=== PATIENT | male | born 1950 | race Caucasian/White ===

== ENCOUNTER → 2017-02-27 12:49 | Emergency (ER) | payer MEDICARE, BC ==
[~2017-02-27 12:49] MED LIST: Iohexol 350* (CONTRAST) 500 ML MDV IV ONE
[2017-02-27 14:26] LABS: Hematocrit 41 % (42-52); Hemoglobin 13.8 g/dl (14.0-18.0); Mean Corpuscular HGB Conc 34 g/dl (31-36); Mean Corpuscular Hemoglobin 28 pg (27-31); Mean Corpuscular Volume 83 fL (80-94); Mean Platelet Volume 9 um3 (7.4-10.4); Red Blood Count 4.91 10^6/ul (4.0-5.4); Red Cell Distribution Width 13 % (10.5-15); White Blood Count 5.2 10^3/ul (3.5-10.8)
[2017-02-27 14:42] LABS: Albumin 3.6 g/dL (3.2-5.2); BUN/Creatinine Ratio 19.4 (8-20); Calcium 8.4 mg/dL (8.6-10.3); EGFR African American 104.9 (>60); EGFR Non-African American 81.5 (>60); Globulin 2.5 g/dL (2-4); Potassium 3.7 mmol/L (3.5-5.0); Total Bilirubin 0.6 mg/dL (0.2-1.0); Total Protein 6.1 g/dL (6.4-8.9)
--- NOTE | 2017-02-27 15:27 | RAD ---
INDICATION: Chest pain and dizziness. On Coumadin for DVT. Evaluate for pulmonary embolus. COMPARISON: CT chest August 11, 2016 TECHNIQUE: Axial source images were obtained from the thoracic inlet to the hemidiaphragms following administration of 100 mL Omnipaque [address] angiographic technique was utilized. Coronal and sagittal reconstructed images were acquired. CHEST FINDINGS: Neck/thyroid: The visualized neck to include the thyroid appear normal. Chest wall: There are no acute abnormalities of the bony thorax or chest wall. There is no supraclavicular, infraclavicular, or axillary lymphadenopathy. Lungs : There are no pulmonary parenchymal masses or infiltrates. The previously described nodule in the right lung base is considerably smaller. The pulmonary interstitium appears normal. There are no endobronchial lesions. Cardiomediastinal structures: There is no CT evidence of acute pulmonary embolic disease. The heart is normal in size. There is no pericardial effusion. There is no evidence of aortic aneurysm or dissection. There is no axillary lymphadenopathy. There is mild mediastinal lymphadenopathy with left infrahilar lymph nodes measuring up to 1.4 cm in short axis. There are multiple additional mixed on lymph nodes which approach 1 cm. These were not present previously. The esophagus appears normal. Pleura : There are no pleural effusions. Other: Small hiatal hernia. IMPRESSION: 1. No CT evidence of acute pulmonary embolic disease. 2. Mild mediastinal lymphadenopathy represents an indeterminate finding. Suggest follow-up. 3. The previously identified pleural-based nodule in the right lung base appears smaller
[2017-02-27 18:10] VITALS: BP 151/69
--- NOTE | 2017-02-28 17:55 | ED ---
Kg Rdz Auryana, scribed for Sam Vila MD on 02/27/17 at 1417 . Respiratory - HPI Summary HPI Summary: 66 year old male LORIA with AGUILAR and dizziness worse since morning. Patient reports that he has had SOB over the last month but that it has gotten progressively worse. Patient also reports general fatigue/weakness and upper chest pain - lasting a few seconds just before going to bed - started a few days ago. He denies any current pain, nausea, or diaphoresis. AGUILAR is improved with rest. PMHx is significant for hernia, RLE DVT (Sep 2016)- Coumadin with normal INR this week. He is currently scheduled with f/u with Dr. Rivas for enlarged lymph nodes. PCP is Dr. Jama. - History of Current Complaint Chief Complaint: EDDizziness Stated Complaint: LIGHT HEADED AND DIZZY, CHEST PRESSURE Time Seen by Provider: 02/27/17 13:42 Hx Obtained From: Patient Onset/Duration: Gradual Onset Timing: Constant Initial Severity: Mild Current Severity: None Pain Intensity: 0 Character: Dyspnea on Exertion Aggravating Factor(s): Exertion Alleviating Factor(s): Rest Associated Signs and Symptoms: SOB, Chest Pain - upper chest pain just before going to sleep lasting a few seconds, Dizziness - Allergy/Home Medications Allergies/Adverse Reactions: Allergies Allergy/AdvReac Type Severity Reaction Status Date / Time No Known Allergies Allergy Verified 08/11/16 08:21 Home Medications: Home Medications Losartan TAB* [Cozaar TAB*] 100 mg PO DAILY 02/27/17 [History Confirmed 02/27/17 ] Pantoprazole TAB (NF) [Protonix TAB (NF)] 40 mg PO DAILY 02/27/17 [History Confirmed 02/27/17] Warfarin TAB(*) [Coumadin TAB(*)] 7.5 mg PO DAILY 02/27/17 [History Confirmed ] PMH/Surg Hx/FS Hx/Imm Hx Endocrine/Hematology History: Denies: Hx Diabetes Cardiovascular History: Reports: Hx Hypertension Denies: Hx Pacemaker/ICD GI History: Denies: Hx Gall Bladder Disease, Hx Gastrointestinal Bleed History: Denies: Hx Dialysis, Hx Renal Disease Sensory History: Denies: Hx Hearing Aid Psychiatric History: Denies: Hx Panic Disorder - Surgical History Surgery Procedure, Year, and Place: abd hernia; bilat knee arthroscopies; tonsils , esophageal dilation Infectious Disease History: No Infectious Disease History: Reports: Hx Hepatitis - thnks it was "B" Denies: Hx Clostridium Difficile, Hx Human Immunodeficiency Virus (HIV), Hx of Known/Suspected MRSA, Hx Shingles, Hx Tuberculosis, Hx Known/Suspected VRE, Hx Known/Suspected VRSA, History Other Infectious Disease, Traveled Outside the [place] in Last 30 Days - Family History Known Family History: Positive: Cardiac Disease, Diabetes, Other - clotting issues - Social History Alcohol Use: Rare Substance Use Type: Reports: None Smoking Status (MU): Never Smoked Tobacco Review of Systems Positive: Fatigue, Other - dizziness . Negative: Fever Eyes: Negative ENT: Negative Positive: Chest Pain - upper chest pain just before going to sleep lasting a few seconds Positive: Shortness Of Breath - AGUILAR Gastrointestinal: Negative Negative: Nausea Genitourinary: Negative Positive: no symptoms reported Musculoskeletal: Negative Skin: Negative Neurological: Negative Psychological: Normal All Other Systems Reviewed And Are Negative: Yes Physical Exam Triage Information Reviewed: Yes Vital Signs On Initial Exam: Initial Vitals Temp Pulse Resp BP Pulse Ox 98.1 F 72 18 124/68 95 02/27/17 12:51 02/27/17 12:51 02/27/17 12:51 02/27/17 12:51 02/27/17 12:51 Vital Signs Reviewed: Yes Appearance: Positive: Well-Appearing, No Pain Distress, Obese Skin: Positive: Warm, Skin Color Reflects Adequate Perfusion, Dry Head/Face: Positive: Normal Head/Face Inspection Eyes: Positive: Normal ENT: Positive: Normal ENT inspection Neck: Positive: Supple, Nontender Respiratory/Lung Sounds: Positive: Clear to Auscultation, Breath Sounds Present Cardiovascular: Positive: Normal, RRR Abdomen Description: Positive: Nontender, Soft Bowel Sounds: Positive: Present Musculoskeletal: Positive: Normal, Strength/ROM Intact Neurological: Positive: Normal, Sensory/Motor Intact Psychiatric: Positive: Normal, Affect/Mood Appropriate - [place] Coma Scale Coma Scale Total: 15 Diagnostics - Vital Signs Vital Signs Temp Pulse Resp BP Pulse Ox 02/27/17 12:51 98.1 F 72 18 124/68 95 - Laboratory Lab Results: Lab Results 02/27/17 02/27/17 02/27/17 Range/Units 14:16 14:16 14:16 WBC 5.2 (3.5-10.8) 10^3/ul RBC 4.91 (4.0-5.4) 10^6/ul Hgb 13.8 L (14.0-18.0) g/dl Hct 41 L (42-52) % MCV 83 (80-94) fL MCH 28 (27-31) pg MCHC 34 (31-36) g/dl RDW 13 (10.5-15) % Plt Count 149 L (150-450) 10^3/ul MPV 9 (7.4-10.4) um3 Neut % (Auto) 49.4 (38-83) % Lymph % (Auto) 33.5 (25-47) % Cottle % (Auto) 11.8 H (1-9) % Eos % (Auto) 4.7 (0-6) % Baso % (Auto) 0.6 (0-2) % Absolute Neuts (auto) 2.6 (1.5-7.7) 10^3/ul Absolute Lymphs (auto) 1.8 (1.0-4.8) 10^3/ul Absolute Monos (auto) 0.6 (0-0.8) 10^3/ul Absolute Eos (auto) 0.2 (0-0.6) 10^3/ul Absolute Basos (auto) 0 (0-0.2) 10^3/ul Absolute Nucleated RBC 0 10^3/ul Nucleated RBC % 0.1 Sodium 136 (133-145) mmol/L Potassium 3.7 (3.5-5.0) mmol/L Chloride 107 (101-111) mmol/L Carbon Dioxide 23 (22-32) mmol/L Anion Gap 6 (2-11) mmol/L BUN 18 (6-24) mg/dL Creatinine 0.93 (0.67-1.17) mg/dL Est GFR ( Amer) 104.9 (>60) Est GFR (Non-Af Amer) 81.5 (>60) BUN/Creatinine Ratio 19.4 (8-20) Glucose 90 (70-100) mg/dL Lactic Acid 1.3 (0.5-2.0) mmol/L Calcium 8.4 L (8.6-10.3) mg/dL Total Bilirubin 0.60 (0.2-1.0) mg/dL AST 19 (13-39) U/L ALT 20 (7-52) U/L Alkaline Phosphatase 83 (34-104) U/L Troponin I 0.00 (<0.04) ng/mL B-Natriuretic Peptide ( - 100) pg/mL Total Protein 6.1 L (6.4-8.9) g/dL Albumin 3.6 (3.2-5.2) g/dL Globulin 2.5 (2-4) g/dL Albumin/Globulin Ratio 1.4 (1-3) 02/27/17 02/27/17 Range/Units 14:16 17:52 WBC (3.5-10.8) 10^3/ul RBC (4.0-5.4) 10^6/ul Hgb (14.0-18.0) g/dl Hct (42-52) % MCV (80-94) fL MCH (27-31) pg MCHC (31-36) g/dl RDW (10.5-15) % Plt Count (150-450) 10^3/ul MPV (7.4-10.4) um3 Neut % (Auto) (38-83) % Lymph % (Auto) (25-47) % Cottle % (Auto) (1-9) % Eos % (Auto) (0-6) % Baso % (Auto) (0-2) % Absolute Neuts (auto) (1.5-7.7) 10^3/ul Absolute Lymphs (auto) (1.0-4.8) 10^3/ul Absolute Monos (auto) (0-0.8) 10^3/ul Absolute Eos (auto) (0-0.6) 10^3/ul Absolute Basos (auto) (0-0.2) 10^3/ul Absolute Nucleated RBC 10^3/ul Nucleated RBC % Sodium (133-145) mmol/L Potassium (3.5-5.0) mmol/L Chloride (101-111) mmol/L Carbon Dioxide (22-32) mmol/L Anion Gap (2-11) mmol/L BUN (6-24) mg/dL Creatinine (0.67-1.17) mg/dL Est GFR ( Amer) (>60) Est GFR (Non-Af Amer) (>60) BUN/Creatinine Ratio (8-20) Glucose (70-100) mg/dL Lactic Acid (0.5-2.0) mmol/L Calcium (8.6-10.3) mg/dL Total Bilirubin (0.2-1.0) mg/dL AST (13-39) U/L ALT (7-52) U/L Alkaline Phosphatase (34-104) U/L Troponin I 0.00 (<0.04) ng/mL B-Natriuretic Peptide 44 ( - 100) pg/mL Total Protein (6.4-8.9) g/dL Albumin (3.2-5.2) g/dL Globulin (2-4) g/dL Albumin/Globulin Ratio (1-3) Result Diagrams: 02/27/17 14:16 02/27/17 14:16 Lab Statement: Any lab studies that have been ordered have been reviewed, and results considered in the medical decision making process. - CT CTA CHEST CT Interpretation: Positive (See Comments) - IMPRESSION: 1. No CT evidence of acute pulmonary embolic disease. 2. Mild mediastinal lymphadenopathy represents an indeterminate finding. Suggest follow-up. 3. The previously identified pleural-based nodule in the right lung base appears smaller CT Interpretation Completed By: Radiologist Disposition - Course Course Of Treatment: Mr. Preston has been having increased SOB symptoms and has a history of DVT. CTA ruled out a PE but showed diffuse lymphadenopathy and I spoke with Dr. Rivas about F/U. - Diagnoses Provider Diagnoses: Dyspnea - Physician Notifications Discussed Care Of Patient With: Arabella Rivas Time Discussed With Above Provider: 16:38 - recommends follow up with PCP Discharge - Discharge Plan Condition: Stable Disposition: HOME Patient Education Materials: Dyspnea (ED) Referrals: Arabella Rivas MD [Medical Doctor] - (please keep scheduled appointment ) Deborah Jama MD [Primary Care Provider] - 3 Days (please follow up with your PCP.) The documentation as recorded by the Kg mukherjee Auryana accurately reflects the service I personally performed and the decisions made by me, Sam Vila MD.
== END | disposition home or self-care (01) ==
LOC: ED 12:49
DX: R06.00 Dyspnea, unspecified (principal); R06.02 Shortness of breath; R07.9 Chest pain, unspecified; R42 Dizziness and giddiness
CPT/HCPCS: 36415; 71275; 80053; 83605; 83880; 84484; 85025; 93005; 99282; Q9967

== ENCOUNTER 2017-03-18 11:33 | Day surgery (SDC) | payer MEDICARE, BC ==
[~2017-03-18 11:33] MED LIST changes: +Buffered Lidocaine 0.9% SYRIN* 5 ML/SYR SYRINGE INTRADERM ONE; -Iohexol 350* (CONTRAST) 500 ML MDV IV ONE
[2017-03-18] MEDS ORDERED: Midazolam* 1 MG/ML 2 ML VIAL (2 MG) ONE (12:58)
[2017-03-18] MEDS ORDERED: Lidocaine 2% PF* 10 ML AMP ONE (13:32)
[2017-03-18] MEDS ORDERED: Lidocaine 2% JELLY* 6 ML JELLY TOPICAL ONE ×2 (13:32→13:34)
[2017-03-18] MEDS ORDERED: Lidocaine 1% INJ* 10 MG/ML 30 ML SDV ONE (13:32)
[2017-03-18] MEDS ORDERED: Rocuronium* 10 MG/ML VIAL ONE (13:39)
[2017-03-18] MEDS ORDERED: Dexamethasone IV* 4 MG/ML 1 ML (4 MG) ONE (13:39)
[2017-03-18] MEDS ORDERED: Propofol* 10 MG/ML 20 ML BTL IV PUSH ONE (13:39)
[2017-03-18] MEDS ORDERED: fentaNYL* 50 MCG/ML 2 ML VIAL (100 MCG VIAL) ONE (13:39)
[2017-03-18] MEDS ORDERED: Lidocaine 2% PF * 5 ML VIAL ONE (13:39)
[2017-03-18] MEDS ORDERED: Succinylcholine* 20 MG/ML 10 ML VIAL ONE (13:39)
[2017-03-18] MEDS ORDERED: DiMENhydriNATE IV* 50 MG/ML VIAL IV PUSH PRN (14:22)
[2017-03-18] MEDS ORDERED: Levalbuterol 0.63MG/3ML NEB INH PRN (14:22)
[2017-03-18] MEDS ORDERED: Ondansetron INJ* 2 MG/ML VIAL IV PRN (14:22)
[2017-03-18] MEDS ORDERED: fentaNYL* 50 MCG/ML 2 ML VIAL (100 MCG VIAL) IV PRN (14:22)
[2017-03-18] MEDS ORDERED: PROCHLORPERAZINE INJ 5 MG/ML 2 ML VIAL IV PRN (14:22)
[2017-03-18] MEDS ORDERED: Acetaminophen TAB* 325 MG PO PRN (14:22)
[2017-03-18] MEDS ORDERED: Phenylephrine IV* 40 MCG/ML 10 ML SYRINGE ONE (14:31)
[2017-03-18 16:05] VITALS: BP 141/87
--- NOTE | 2017-03-19 02:45 | PRO ---
BRONCHOSCOPY REPORT: DATE OF PROCEDURE: 03/18/17 [facility] PROCEDURE PERFORMED BY: Arabella Rivas MD ANESTHESIOLOGIST: Dr. Hoskins. ANESTHESIA: General anesthesia. PRE-PROCEDURAL DIAGNOSIS: Mediastinal adenopathy. PROCEDURE PERFORMED: Endobronchial ultrasound-guided fine-needle aspiration of mediastinal nodes under general anesthesia. PROCEDURE IN DETAIL: Informed consent was obtained from the patient prior to the procedure after all the risks and benefits associated with the procedure were thoroughly explained. The patient was intubated with size 8.0 endotracheal tube. Appropriate time-out was agreed on by operating room staff prior to the procedure. The patient was lying supine on operating room table. Flexible Olympus bronchoscope was inserted through ET tube for airway inspection. ET tube positioning was confirmed to be 2 cm above the level of ximena. Bronchoscope was then advanced into the right bronchial tree, which was inspected. Minimal amounts of thin secretions were noted and were suctioned out. Bronchoscope was then advanced into the left bronchial tree, minimal secretions noted and were suctioned out. No endobronchial lesions were noted. Bronchoscope was then withdrawn and Olympus EBUS bronchoscope was inserted. Station 7 lymph node was accessed with 3 passes. Rapid on-site evaluation revealed lymphatic tissue, no malignant cells were noted. R4 lymph node was then accessed with 3 passes. Rapid on-site evaluation revealed lymphatic tissue , no malignant cells were noted. Station L10 was accessed with 3 passes. Lymphatic tissue was seen. No malignant cells were noted, specimen was placed in CytoLyt. Patient tolerated the procedure well. The patient was extubated and seen in Recovery in optimal condition. [id number]/CPS #: [id number] MTDD
== END 2017-03-18 16:36 | disposition home or self-care (01) ==
LOC: OR 11:33
PROVIDERS: ATTEND Internal Medicine
DX: R59.0 Localized enlarged lymph nodes (principal); I10 Essential (primary) hypertension; K21.9 Gastro-esophageal reflux disease without esophagitis; I82.5Y1 Chronic embolism and thrombosis of unspecified deep veins of right proximal lower extremity; Z79.01 Long term (current) use of anticoagulants; Z88.8 Allergy status to other drugs, medicaments and biological substances
CPT/HCPCS: 88172; 88173; 88184; 88185; 88188; 88305; J0330; J1100; J2001; J2250; J2704; J3010

== ENCOUNTER 2017-04-29 14:04 | Emergency (ER) | payer MEDICARE, BC ==
[2017-04-29 14:26] VITALS: BP 144/83
--- NOTE | 2017-04-29 15:18 | UC ---
Skin Complaint HPI - HPI Summary HPI Summary: 66 YO MALE WITH A SMALL TENDER AREA OF REDNESS AND SWELLING LEFT MEDIAL CALF JUST STOPPED COUMADIN AFTER 9 MOS FOR RIGHT LEG DVT NO CP OR SOB - History of Current Complaint Chief Complaint: UCLowerExtremity Time Seen by Provider: 04/29/17 15:12 Stated Complaint: LEFT LEG PAIN Hx Obtained From: Patient Onset/Duration: Gradual Onset, Lasting Days Onset Severity: Mild Current Severity: Mild Pain Intensity: 2 Pain Scale Used: 0-10 Numeric Location: Other - LEFT LEG Character: Pain, Redness Aggravating: Touch Alleviating: Nothing Associated Signs & Symptoms: Positive: Tenderness - Allergy/Home Medications Allergies/Adverse Reactions: Allergies Allergy/AdvReac Type Severity Reaction Status Date / Time No Known Allergies Allergy Verified 04/29/17 14:18 Review of Systems Constitutional: Negative Skin: Negative Eyes: Negative ENT: Negative Respiratory: Negative Cardiovascular: Negative Gastrointestinal: Negative Genitourinary: Negative Motor: Negative Neurovascular: Negative Musculoskeletal: Negative Neurological: Negative Psychological: Negative All Other Systems Reviewed And Are Negative: Yes PMH/Surg Hx/FS Hx/Imm Hx Previously Healthy: Yes Cardiovascular History: Hypertension, Deep Vein Thrombosis Other History Of: Hepatitis B - Surgical History Surgical History: Yes Surgery Procedure, Year, and Place: TONSILLECTOMY- [address] [place] [address]. [place] [facility] [place]- [place] [facility] [place] BILATERAL KNEE SURGERIES X 4 (2 LEFT, 2 RIGHT)- 1998, 2004, 2008, [place] [facility] [place] - Family History Known Family History: Positive: Cardiac Disease, Hypertension, Diabetes, Other - clotting issues - Social History Alcohol Use: None Substance Use Type: None Smoking Status (MU): Never Smoked Tobacco Have You Smoked in the Last Year: No - Immunization History Most Recent Tetanus Shot: 08/09/2010 Physical Exam Triage Information Reviewed: Yes Appearance: Well-Appearing, No Pain Distress, Well-Nourished Vital Signs: Initial Vital Signs Temp 98.1 F 04/29/17 14:20 Pulse 84 04/29/17 14:20 Resp 16 04/29/17 14:20 BP 144/83 04/29/17 14:20 Pulse Ox 98 04/29/17 14:20 Vital Signs Reviewed: Yes Eyes: Positive: Conjunctiva Clear ENT: Positive: Hearing grossly normal. Negative: Nasal congestion, Nasal drainage, Trismus, Muffled/hoarse voice Neck: Positive: Supple, Nontender, No Lymphadenopathy Respiratory: Positive: Lungs clear, Normal breath sounds, No respiratory distress, No accessory muscle use Cardiovascular: Positive: RRR, No Murmur Musculoskeletal: Positive: ROM Intact, No Edema Neurological: Positive: Alert Psychological Exam: Normal Skin Exam: Normal Course/Dx - Course Course Of Treatment: PT IS AWARE OF HIS INCREASED RISK OF DVT. I TOLD HIM THAT IF HE IS UNABLE TO GET CHECKED WITH HIS MD THAT HE SHOULD GET RECHECKED IN 1-2 DAYS HERE OR ER - Diagnoses Provider Diagnoses: SUPERFICIAL THROMBOPHEBITIS LEFT LEG Discharge - Discharge Plan Condition: Stable Disposition: HOME Prescriptions: Naproxen Sodium [Naproxen Sodium 500 MG TAB] 500 mg PO BID PRN #30 tab PRN Reason: Pain Patient Education Materials: Superficial Thrombophlebitis (ED) Referrals: Deborah Jama MD [Primary Care Provider] - As Soon As Possible (you should be rechecked in 1-2 days) Additional Instructions: heat naproxen YOU ARE AT HIGH RISK FOR DVT. AT THIS TIME THINGS ARE VERY SUPERFICIAL BUT THIS NEEDS CLOSE FOLLOW UP IF SYMPTOMS WORSEN YOU WILL NEED A DOPPLER STUDY Images Front/Back of Body, Lg ([place]): 1 - 3X4 XM OF REDNESS/WARMTH/TENDER VARICOSE VEIN. CALF NON TENDER/-HOMANS
== END 2017-04-29 15:15 | disposition home or self-care (01) ==
LOC: UCCORT 14:04
DX: I80.02 Phlebitis and thrombophlebitis of superficial vessels of left lower extremity (principal); I10 Essential (primary) hypertension; Z86.718 Personal history of other venous thrombosis and embolism
CPT/HCPCS: 99212; G0463

== ENCOUNTER 2018-04-08 06:59 | Inpatient (IN) | payer MEDICARE, BC ==
--- NOTE | 2018-03-24 19:40 | HP ---
CC: Dr. Lawrence; [facility] * PREOPERATIVE HISTORY AND PHYSICAL: DATE OF ADMISSION/SURGERY: 04/08/18 This patient is scheduled for AA admission by Dr. Oshea on , 04/08/18. DATE OF PREOPERATIVE HISTORY AND PHYSICIAN EXAMINATION: 03/24/18. ATTENDING SURGEON: Dr. Bakari Oshea * (dictated by Anuradha Jacobs NP). CHIEF COMPLAINT: Lung nodules. HISTORY OF PRESENT ILLNESS: The patient is a 67-year-old male referred to Dr. Oshea from Dr. Lawrence with a history of multiple lung nodules. The patient had a deep vein thrombosis in the right lower extremity in September 2016 and underwent a workup and was managed at that time on anticoagulation. He had a CAT scan of the chest approximately one year ago that showed a questionable lung nodule and prominent mediastinal lymph nodes. EBUS at that time was negative. A followup CT scan done 6 months ago showed tiny lung nodules about 3 or 4 mm in size and then a repeat CT of the chest done in February 2018 showed more than 10 such nodules spread throughout both lungs. Dr. Oshea ordered a CAT scan of the chest, abdomen, and pelvis, which was done 03/17/18, which revealed scattered small nodules in both lung arthur, no change since the previous scan in February 2018 and no other masses or fluid collections were identified. Dr. Oshea has discussed the above findings with the patient and has recommended left thoracoscopy and lung biopsy and described the nature of the surgical procedure and the rationale for the procedure, the relevant risks and benefits of the procedure, and today, I reviewed the typical hospitalization , the use of a chest tube and the expected postoperative care and recovery. The patient has had a chance to ask questions and stated that he under-stands the information and is satisfied with the answers given to his questions. He will sign surgical consent on the day of surgery. PAST MEDICAL HISTORY: Significant for deep vein thrombosis, right lower extremity, diagnosed September 2016; small ventral hernia; GERD; hypertension. PAST SURGICAL HISTORY: Laparoscopic inguinal hernia repair around [address] Oshea, multiple knee arthroscopies, and tonsillectomy. MEDICATIONS: 1. Pantoprazole 40 mg p.o. daily. 2. Losartan 50 mg p.o. daily. 3. Atorvastatin 10 mg p.o. daily. 4. Aspirin enteric-coated 325 mg p.o. daily and the patient was instructed to continue taking the daily aspirin in the perioperative period. 5. He also takes AREDS supplement. ALLERGIES: SUDAFED caused hallucinations. FAMILY HISTORY: Father with a history of myocardial infarction and CVA. Mother with a history of motor vehicle accident and blood clots. No known anesthesia complications in the family. 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 He has never been a smoker and rarely drinks alcohol and denies the use of other substances. REVIEW OF SYSTEMS: Constitutional: No fevers, chills, night sweats, excessive fatigue, or weight loss. Endocrine: No diabetes or thyroid disease. Hematologic: No easy bruising or bleeding. No previous blood transfusions. Respiratory: No dyspnea on exertion. No chronic cough or hemoptysis. Cardiovascular: No chest pain or palpitations. Gastrointestinal: No nausea, vomiting, diarrhea, GI bleeding, or constipation. No change in bowel habits. He does have GERD, which is controlled with medication. Genitourinary: No dysuria. Musculoskeletal: No complaints of back or joint pain. Neurologic: No headache or blurred vision. No dizziness. No areas of focal weakness. General: No previous anesthesia complications; he does have a history of deep vein thrombosis in the right lower extremity and wears a support stocking. No history of pulmonary embolism. No previous blood transfusions. PHYSICAL EXAMINATION GENERAL SURVEY: The patient is a 67-year-old male, well developed, well nourished, in no acute distress. VITAL SIGNS: Height 71.5 inches, weight 235 pounds, body mass index 32.3. Blood pressure 132/72, pulse 72 and regular, respiratory rate 18, temperature 96.7 tympanic. HEENT: Benign. NECK: Supple. No cervical lymphadenopathy. No supraclavicular lymphadenopathy. LUNGS: Breath sounds bilaterally clear and equal. HEART: Regular rate and rhythm. No murmurs or rubs appreciated. ABDOMEN: Active bowel sounds. Soft and nondistended. Small ventral hernia, left mid quadrant, nontender, reducible when the patient is supine. No umbilical hernia. No other palpable masses or organomegaly. BACK: No CVA tenderness. GENITALIA: Exam deferred. RECTAL: Exam deferred. EXTREMITIES: Warm without edema or skin ulceration. He does have varicose veins. NEUROLOGIC: Alert and oriented x3. Steady gait. SKIN: Warm, dry, intact. IMPRESSION: Bilateral lung nodules. PLAN: AA admission to Dr. Oshea's service on , 04/08/18, for left thoracoscopy and lung biopsy. ALEKSEY JACOBS, SR. DIRECTOR PRODUCT MANAGEMENT [id number]/[facility] #: [id number] [place]
[~2018-04-08 06:59] MED LIST changes: +Famotidine IV* 10 MG/ML 2 ML (20 mg) IV ONE
--- OUTSIDE RECORDS SUMMARY | 2018-04-08 07:03 | XMS REPORT ---
:1950 External Reference #:[id number] Author Organization [employer] Address [address] [place] [address] Phone [phone] Care Team Providers Name Role Phone Suhas Krueger D.O. Primary Care Physician Unavailable Payers Type Date Identification Numbers Payment Provider Subscriber Medicare Primary Effective: Policy Number: Medicare Moraima Wong 2016 [id number] PayID: [id number] [address] [place] [address] Medigap Part B Policy Number: [id number] [facility] Moraima Wong PayID: [id number] [address] [place] [address] Commercial Expires: 2014 Group Name: [facility] Moraima Wong Elect Pensioner (Oon) PayID: [id number] [address] [place] [address] Problems Date Description Provider Status Onset: 03/03/2017 Elisa Rivas MD Active Onset: 05/16/2015 Osteoarthritis of knee Sarah Franco M.D. Active Onset: 04/27/2015 Sprain of knee and leg Sarah Franco M.D. Active Onset: 04/27/2015 Current tear of medial cartilage AND/OR Sarah Franco M.D. Active meniscus of knee Onset: 04/13/2015 Localized, primary osteoarthritis Sarah Franco M.D. Active Family History Date Family Member(s) Problem(s) Comments General Prostate Cancer General Arthritis General Stroke Father Cerebrovascular Accident (CVA) Father [place] Mother Blood clots secondary to MVA and resulting injuries Social History Type Date Description Comments Marital Status Lives With Occupation Retired Cigarette Use Never Smoked Cigarettes ETOH Use Rarely consumes alcohol wine Smoking Patient has never smoked Recreational Drug Use Denies Drug Use Daily Caffeine Consumes on average 2 cups of regular coffee per day Exercise Type/Frequency Exercises regularly 2-3 times per week Allergies, Adverse Reactions, Alerts Date Description Reaction Status Severity Comments 03/03/2017 Sudafed active hallucinations 08/28/2014 NKDA inactive Medications Medication Date Status Form Strength Qnty SIG Indications Ordering Provider Pantoprazole / Active Tablets 40mg 1 po qd Franz, Sodium 0000 DR Sami MD Losartan / Active Tablets 50mg 1 po qd Jaguar Potassium 0000 MD Ismael Aspirin Ec / Active Tablets 325mg take 1 tab by Unknown 0000 DR mouth every day Atorvastatin / Active Tablets 10mg 1 by mouth Unknown Calcium 0000 every day Areds / Active Unknown 0000 Voltaren 04/27/ Hx Gel 1% 1tube apply to 836.0 Sarah 2014 right knee Salvador, three times a M.D. day as needed Percocet 04/16/ Hx Tablets 5-325mg 50tab 1-2 by mouth Sarah 2014 s every 4 to 6 Salvador, hours as M.D. needed pain Pantoprazole 08/28/ Hx Tablets 30tab 1 by mouth Evi Sodium Gela - DR cooper every day Markell 04/12/ M.D. 2014 Losartan / Hx Tablets 30tab 1 by mouth Unknown Potassium 0000 - s every day 2013 Multi Vitamin /00/ Hx Tablets 1 po qd Unknown Daily 0000 Hydrocodone-Ac 00/ Hx Tablets 5-325mg Unknown etaminophen 0000 - 2014 Glucosamine & /00/ Hx Packet [id number] 1 po qd Unknown Chondroiti 0000 -800mg-mg N/Vitamin D -Unit Maximum Strength Cephalexin 00/ Hx Capsules 500mg Every 6 Unknown 0000 hours.. Warfarin 00/00/ Hx Tablets 7.5mg as directed Unknown Sodium 0000 - (on hold) 2017 L-Arginine / Hx 2 daily, not Unknown 0000 - consistently 2017 Naproxen / Hx Tablets 250mg 1 tablet by Unknown 0000 - mouth twice a 10/07/ day as needed 2018 pain, with foods Medications Administered in Office Medication Date Status Form Strength Qnty SIG Indications Ordering Provider Synvisc Or Administered Injection Sarah Synvisc-One Chris Franco M.D. Injection 1 MG Synvisc Or Administered Injection Siobhan Synvisc-One 015 Liptak, Injection 1 MG RPA-C Synvisc Or Administered Injection Sarah Synvisc-One Chris Franco M.D. Injection 1 MG Depomedrol Administered Injection Sarah 80MG Chris Franco M.D. Immunizations CPT Code Status Date Vaccine Lot # [id number] Given 08/18/2016 Pneumonia Vaccine 40636 Given 08/18/2016 Influenza Virus 3Yrs & Over Vital Signs Date Vital Result Comment 03/24/2018 Height 71.5 inches 5'11.50" Weight 235.00 lb Heart Rate 72 /min BP Systolic 132 mmHg BP Diastolic 72 mmHg Respiratory Rate 18 /min Body Temperature 96.7 F BMI (Body Mass Index) 32.3 kg/m2 03/16/2018 Height 71.5 inches 5'11.50" Weight 235.00 lb Heart Rate 74 /min BP Systolic 130 mmHg BP Diastolic 82 mmHg Respiratory Rate 18 /min Body Temperature 97.9 F BMI (Body Mass Index) 32.3 kg/m2 10/08/2017 Height 71.5 inches 5'11.50" Weight 238.00 lb Heart Rate 88 /min BP Systolic Sitting 112 mmHg BP Diastolic Sitting 76 mmHg Respiratory Rate 14 /min O2 % BldC Oximetry 96 % BMI (Body Mass Index) 32.7 kg/m2 05/01/2017 Height 71.5 inches 5'11.50" Weight 233.00 lb Heart Rate 90 /min BP Systolic 130 mmHg BP Diastolic 74 mmHg Respiratory Rate 18 /min Body Temperature 98.1 F BMI (Body Mass Index) 32.0 kg/m2 03/26/2017 Height 71.5 inches 5'11.50" Weight 240.00 lb Heart Rate 76 /min BP Systolic Sitting 128 mmHg BP Diastolic Sitting 88 mmHg Respiratory Rate 14 /min O2 % BldC Oximetry 98 % BMI (Body Mass Index) 33.0 kg/m2 03/03/2017 Height 71.5 inches 5'11.50" Weight 242.00 lb Heart Rate 90 /min BP Systolic Sitting 114 mmHg BP Diastolic Sitting 76 mmHg Respiratory Rate 24 /min O2 % BldC Oximetry 97 % room air BMI (Body Mass Index) 33.3 kg/m2 Neck Circumference in inches 17.5 08/29/2016 Height 71.5 inches 5'11.50" Weight 235.00 lb Heart Rate 76 /min BP Systolic 130 mmHg BP Diastolic 70 mmHg Respiratory Rate 16 /min Body Temperature 97.2 F BMI (Body Mass Index) 32.3 kg/m2 08/08/2016 Heart Rate 80 /min BP Systolic 124 mmHg BP Diastolic 74 mmHg Respiratory Rate 16 /min Body Temperature 97.4 F 08/05/2016 Height 73.5 inches 6'1.50" Weight 235.00 lb Heart Rate 80 /min BP Systolic Sitting 140 mmHg BP Diastolic Sitting 82 mmHg Respiratory Rate 18 /min Body Temperature 96.8 F BMI (Body Mass Index) 30.6 kg/m2 05/30/2015 Height 71 inches 5'11" Weight 230.00 lb Pain Level 1 BMI (Body Mass Index) 32.1 kg/m2 05/23/2015 Height 71 inches 5'11" Weight 230.00 lb Pain Level 0 BMI (Body Mass Index) 32.1 kg/m2 05/16/2015 Height 71 inches 5'11" Weight 230.00 lb Pain Level 2 BMI (Body Mass Index) 32.1 kg/m2 04/27/2015 Height 71 inches 5'11" Heart Rate 78 /min BP Systolic Sitting 140 mmHg BP Diastolic Sitting 66 mmHg 04/13/2015 Height 71 inches 5'11" Weight 230.00 lb Heart Rate 84 /min BP Systolic Sitting 124 mmHg BP Diastolic Sitting 78 mmHg BMI (Body Mass Index) 32.1 kg/m2 08/28/2014 Height 72 inches 6'0" Weight 240.00 lb Heart Rate 80 /min BP Systolic Sitting 128 mmHg BP Diastolic Sitting 82 mmHg BMI (Body Mass Index) 32.5 kg/m2 Results Test Date Test Result H/L Range Note Laboratory test 03/16/2018 Blood Urea Nitrogen 17 mg/dL 6-24 finding BUN Creatinine 03/16/2018 Creatinine 0.99 mg/dL 0.67-1.17 Egfr Non- 75.6 >60 Egfr 91.5 >60 1 Laboratory test finding 03/18/2017 Cytology Non-Organisation And Methods Analyst SEE RESULT BELOW 2 Leukemia/Lymphoma Flow 03/18/2017 Path Interpretation 2-8 TNP Marker Path Interpret > 16 Marker TNP Path Interpret 9-15 Marker (SEE NOTE) 3 Inr/Protime 03/03/2017 Inr 2.52 High 0.89-1.11 Laboratory test finding 08/05/2016 Blood Urea Nitrogen 20 mg/dL 6-24 BUN Creatinine 08/05/2016 Creatinine 1.03 mg/dL 0.67-1.17 Egfr Non- 72.5 >60 Egfr 93.2 >60 4 1 Because ethnic data is not always readily available, this report includes an eGFR for both -Americans and non- Americans. The National Kidney Disease Education Program (NKDEP) does not endorse the use of the MDRD equation for patients that are not between the ages of 18 and 70, are , have extremes of body size, muscle mass, or nutritional status, or are non- or non-. According to the National Kidney Foundation, irrespective of diagnosis, the stage of the disease is based on the level of kidney function: Stage Description GFR(mL/min/1.73 m(2)) 1 Kidney damage with normal or decreased GFR 90 2 Kidney damage with mild decrease in GFR 60-89 3 Moderate decrease in GFR 30-59 4 Severe decrease in GFR 15-29 5 Kidney failure <15 (or dialysis) 2 SEE RESULT BELOW Name: MORAIMA WONG : [address]: Arabella Rivas MD Acct: [id number] Unit: [id number] AGE: 66 Location: OR Re03/18/17 SEX: M Status: [place] [facility] [place] SPEC: [id number] FOREIGN: 03/18/17-1420 [facility] [place] DR: Arabella Rivas MD REQ: [id number] RECD: 03/18/17 STATUS: SOUT _ ORDERED: FNA-IMG GUID BX/3, LEVEL 4/3, CYTO ADEQ-1ST P/3 Flow cytometry has been performed at [facility], [place], [place]. The testing reveals: FINAL DIAGNOSIS: Specimen Source: Lymph node, R-4/L-10 ([id number]) Flow cytometry immunophenotypic analysis: No evidence of an immunophenotypically abnormal cell population. Interpretative data: Lymphocytes: 93% of gated events B-cells: 15% of lymphs; kappa:lambda within normal limits T-cells/NK cells: No aberrant population detected. Markers tested: CD3, CD5, CD7, CD10, CD19, CD20, CD23, CD45, kappa surface light chains, lambda surface light chains, 7-AAD. Quality Assessment: Acceptable Viability: Acceptable Viable lymphocytes (7-AAD): 99% Specimen received within validated guidelines. A Corea-Giemsa stained slide prepared from the flow cytometry specimen was examined for quality purposes. Electronically signed by: Radha Engle MD 03/20/17 2292 Technical component performed by: [place] [address] [employer] Practitioner: Twin Fletcher II, MD, PhD. CONTINUED ON NEXT PAGE * ML=Testing performed at Main Lab DEPARTMENT OF PATHOLOGY, [address] [place] [address] Erwin Duarte M.D. Director SARAH # [id number] RUN DATE: 03/23/17 [facility] LAB LIVE PAGE 2 Patient: MORAIMA WONG [id number] (Continued) ADDENDUM (Continued) Addendum Signed (signature on file) Erwin Duarte MD 1433 FINAL DIAGNOSIS 1) Lymph node, Station 7, Endobronchial ultrasound guided fine needle aspiration: --Benign -ciliated bronchial cells and lymphoid tissue. --No evidence of malignancy identified. 2) Lymph node, R4, Endobronchial ultrasound guided fine needle aspiration: --Benign -ciliated bronchial cells and lymphoid tissue. --No evidence of malignancy identified. 3) Lymph node, L10, Endobronchial ultrasound guided fine needle aspiration: --Benign -ciliated bronchial cells and lymphoid tissue. --No evidence of malignancy identified. COMMENT: A cell block was prepared in the evaluation of this specimen. Smears and cell block reveal similar findings. No granulomata are seen. Flow cytometry is negative for an immunophenotypically abnormal cell population. #1. LYMPH NODE - US GUIDED STATION 7 ENDOBRONCHIAL FINE NEEDLE ASPIRATION, #2. LYMPH NODE - US GUIDED R-4 ENDOBRONCHIAL FINE NEEDLE ASPIRATION, #3. LYMPH NODE - US GUIDED L-10 ENDOBRONCHIAL FINE NEEDLE ASPIRATION CLINICAL HISTORY #1) STATION 7 lymph node. #2) R-4 lymph node. #3) L-10 lymph node. CONTINUED ON NEXT PAGE * ML=Testing performed at Main Lab DEPARTMENT OF PATHOLOGY, [address] [place] [address] Erwin Duarte M.D. Director SARAH # [id number] RUN DATE: 03/23/17 [facility] LAB LIVE PAGE 3 Patient: MORAIMA WONG [id number] (Continued) IMMEDIATE INTERPRETATION (Continued) IMMEDIATE INTERPRETATION 1) Pass 1-3 adequate 2) Pass 1-3 adequate 3) Pass 1 2-adequate GROSS DESCRIPTION #1) US guided endobronchial fine needle aspiration x 3 pass(es) with 8 alcohol fixed slides and needle rinse in formalin for cell block. #2) US guided endobronchial fine needle aspiration x 3 pass(es) with 2 alcohol fixed slides and needle rinse in formalin for cell block. #3) US guided endobronchial fine needle aspiration x 2 pass(es) with 2 alcohol fixed slides and needle rinse in formalin for cell block. Specimens #2 and #3 combined for Specimen sent to [facility] for Flow cytometry [place], [place] on 03/18/17 by [id number] at 1531. Signed (signature on file) Radha Engle MD 1616 END OF REPORT * ML=Testing performed at Main Lab DEPARTMENT OF PATHOLOGY, [address] [place] [address] Erwin Duarte M.D. Director [facility] # [id number] 3 FINAL DIAGNOSIS: Specimen Source: Lymph node, R-4/L-10 ([id number]) Flow cytometry immunophenotypic analysis: No evidence of an immunophenotypically abnormal cell population. Interpretative data: Lymphocytes: 93% of gated events B-cells: 15% of lymphs; kappa:lambda within normal limits T-cells/NK cells: No aberrant population detected. Markers tested: CD3, CD5, CD7, CD10, CD19, CD20, CD23, CD45, kappa surface light chains, lambda surface light chains, 7-AAD. Quality Assessment: Acceptable Viability: Acceptable Viable lymphocytes (7-AAD): 99% Specimen received within validated guidelines. A Corea-Giemsa stained slide prepared from the flow cytometry specimen was examined for quality purposes. Electronically signed by: Radha Engle MD 03/20/17 1614 Technical component performed by: [place] [address] [employer] Practitioner: Twin Fletcher II, MD, PhD. 4 Because ethnic data is not always readily available, this report includes an eGFR for both -Americans and non- Americans. The National Kidney Disease Education Program (NKDEP) does not endorse the use of the MDRD equation for patients that are not between the ages of 18 and 70, are , have extremes of body size, muscle mass, or nutritional status, or are non- or non-. According to the National Kidney Foundation, irrespective of diagnosis, the stage of the disease is based on the level of kidney function: Stage Description GFR(mL/min/1.73 m(2)) 1 Kidney damage with normal or decreased GFR 90 2 Kidney damage with mild decrease in GFR 60-89 3 Moderate decrease in GFR 30-59 4 Severe decrease in GFR 15-29 5 Kidney failure <15 (or dialysis) Procedures Date CPT Code Description Status 03/18/2017 64854 Endobronchial Ultrasound=>3 Completed 05/30/2015 Inject/Drain Joint/Bursa Major W/O US Completed 05/23/2015 Inject/Drain Joint/Bursa Major W/O US Completed 05/16/2015 Inject/Drain Joint/Bursa Major W/O US Completed 04/13/2015 91842 Xray Knee 3 Views Completed 04/13/2015 Inject/Drain Joint/Bursa Major W/O US Completed 08/28/2014 51825 Rad Exam; Fingers Completed Encounters Type Date Location Provider CPT E/M Dx Office Visit 03/16/2018 [facility], [address] J98.4 9:45a [facility] Office Visit 10/08/2017 [facility] [address] J98.4 9:15a [facility] Office Visit 05/01/2017 [facility], [address] K43.2 2:00p [facility] Office Visit 03/26/2017 [facility] [address] R59.0 7:30a [facility] Office Visit 03/03/2017 [facility] [address] R59.0 12:00p [facility] I82.5Y9 Z79.01 Office Visit 08/29/2016 2:00p [place] [address] K43.2 Of [facility] Office Visit 08/08/2016 3:30p [place] [address] K43.2 Of [facility] J98.4 Office Visit 08/05/2016 10:00a [place] [address] R22.2 Of [facility] Office Visit 04/27/2015 1:15p [facility] Sarah Franco M.D. 19806 836.0 Of [facility] AT [place] [address].06 715.16 844.9 715.96 Office Visit 04/13/2015 2:00p [facility] Of Sarah Franco M.D. 60075 715.16 [facility] AT [place] 719.06 719.46 844.9 715.96 727.09 Office Visit 08/28/2014 8:45a [facility] Evi Guillaume 04187 924.11 Of [facility] VIKTORIA [place] Raissa 715.34 Plan of Care Future Appointment(s):04/08/2018 9:00 am - JA Gibbs at [facility]04/08/2018 9:00 am - Bakari Oshea M.D. at [facility]04/07/2018 9:15 am - Arabella Rivas MD at [facility]03/24/2018 - Anuradha Arriaza, NPJ98.4 Other disorders of lungFollow up:postop after discharge from [facility].818 Encounter for other preprocedural examination
--- OUTSIDE RECORDS SUMMARY | 2018-04-08 07:03 | XMS REPORT ---
:1950 External Reference #:[id number] Author Organization [employer] Address [address] [address] Phone [phone] Care Team Providers Name Role Phone Suhas Krueger D.O. Primary Care Physician Unavailable Payers Type Date Identification Numbers Payment Provider Subscriber Medicare Primary Effective: Policy Number: Medicare Moraima Wong 2016 [id number] PayID: [id number] [address] [place] [address] Medigap Part B Policy Number: [id number] [facility] Moraima Wong PayID: [id number] [address] [place] [address] Commercial Expires: 2014 Group Name: [facility] Moraima Wong Elect Pensioner (Oon) PayID: [id number] [address] [place] [address] Problems Date Description Provider Status Onset: 03/03/2017 [...] General Stroke Father Cerebrovascular Accident (CVA) Father [place] Mother Blood clots secondary to MVA and [...] - 2014 Glucosamine & /00/ Hx Packet [id number] 1 po qd Unknown Chondroiti 0000 -800mg-mg [...] CPT Code Status Date Vaccine Lot # [id number] Given 08/18/2016 Pneumonia Vaccine 72045 Given 08/18/2016 Influenza Virus 3Yrs & Over Vital Signs Date Vital Result Comment 03/16/2018 Height 71.5 inches 5'11.50" Weight 235.00 [...] Test Result H/L Range Note Laboratory test 03/18/2017 Cytology Non-Dairy Worker SEE RESULT 1 finding BELOW Leukemia/Lymphoma 03/18/2017 Path Interpretation 2-8 TNP Flow Marker Path Interpret > 16 Marker TNP Path Interpret 9-15 Marker (SEE NOTE) 2 Inr/Protime 03/03/2017 Inr 2.52 High 0.89-1.11 Laboratory test finding 08/05/2016 Blood Urea Nitrogen 20 mg/dL 6-24 BUN Creatinine 08/05/2016 Creatinine 1.03 mg/dL 0.67-1.17 Egfr Non- 72.5 >60 Egfr 93.2 >60 3 1 SEE RESULT BELOW Name: MORAIMA WONG : [address]: Arabella Rivas MD Acct: [id number] Unit: [id number] AGE: 66 Location: OR Re03/18/17 SEX: M Status: REG [facility] SPEC: [id number] FOREIGN: 03/18/[address]: Arabella Rivas MD REQ: [id number] RECD: 03/18/17 STATUS: SOUT _ ORDERED: FNA-IMG GUID BX/3, LEVEL 4/3, CYTO ADEQ-1ST P/3 Flow cytometry has been performed at [facility], [place], [place]. The testing reveals: FINAL DIAGNOSIS: Specimen Source: Lymph node, R-4/L-10 ([id number]) Flow cytometry immunophenotypic analysis: No evidence of [...] MD 03/20/17 1614 Technical component performed by: [facility] - [address] [address] Internal Medicine Specialist: Twin Fletcher II, MD, PhD. CONTINUED ON NEXT PAGE * ML=Testing performed at Main Lab DEPARTMENT OF PATHOLOGY, [address] [place] [address] Erwin Duarte M.D. Director [facility] # [id number] RUN DATE: 03/23/17 [facility] LAB LIVE PAGE 2 Patient: MORAIMA WONG [id number] (Continued) ADDENDUM (Continued) Addendum Signed (signature on [...] performed at Main Lab DEPARTMENT OF PATHOLOGY, [address] [place] [address] Erwin Duarte M.D. Director [facility] # [id number] RUN DATE: 03/23/17 [facility] LAB LIVE PAGE 3 Patient: MORAIMA WONG [id number] (Continued) IMMEDIATE INTERPRETATION (Continued) IMMEDIATE INTERPRETATION 1) [...] and #3 combined for Specimen sent to [facility] for Flow cytometry [place], [place] on 03/18/17 by [id number] at 1531. Signed (signature on file) Radha Engle MD 1616 END OF REPORT * ML=Testing performed at Main Lab DEPARTMENT OF PATHOLOGY, [address] [place] [address] Erwin Duarte M.D. Director [facility] # [id number] 2 FINAL DIAGNOSIS: Specimen Source: Lymph node, R-4/L-10 ([id number]) Flow cytometry immunophenotypic analysis: No evidence of [...] MD 03/20/17 1614 Technical component performed by: [place] [id number] Internal Medicine Specialist: Twin Fletcher II, MD, PhD. 3 Because ethnic data is not always readily [...] Procedures Date CPT Code Description Status 03/18/2017 82556 Endobronchial Ultrasound=>3 Completed 05/30/2015 Inject/Drain Joint/Bursa Major W/O US Completed 05/23/2015 Inject/Drain Joint/Bursa Major W/O US Completed 05/16/2015 Inject/Drain Joint/Bursa Major W/O US Completed 04/13/2015 12727 Xray Knee 3 Views Completed 04/13/2015 Inject/Drain Joint/Bursa Major W/O US Completed 08/28/2014 61632 Rad Exam; Fingers Completed Encounters Type Date Location Provider CPT E/M Dx Office Visit 10/08/2017 [facility] [place] [address] J98.4 9:15a [facility] Office Visit 05/01/2017 [facility], [address] K43.2 2:00p [facility] MD Office Visit 03/26/2017 [facility] [place] [address] R59.0 7:30a [facility] Office Visit 03/03/2017 [facility] [place] [address] R59.0 12:00p [facility] I82.5Y9 Z79.01 Office Visit 08/29/2016 2:00p [facility] [place] [address] K43.2 Of [facility] Office Visit 08/08/2016 3:30p [facility] [place] [address] K43.2 Of [facility] J98.4 Office Visit 08/05/2016 10:00a [place] [address] R22.2 Of [facility] Office Visit 04/27/2015 1:15p Orthopedic Services Sarah Franco M.D. 40799 836.0 Of [facility] AT [place] 719.06 715.16 844.9 715.96 Office Visit 04/13/2015 2:00p [facility] Of Sarah Franco M.D. 23425 715.16 [facility] AT [place] 719.06 719.46 844.9 715.96 727.09 Office Visit 08/28/2014 8:45a Orthopedic Services Evi Guillaume 537[address] 924.11 [facility] AT [place] Raissa 715.34 Plan of Care Future Appointment(s):04/07/2018 9:15 am - Arabella Rivas MD at [facility]03/16/2018 - Bakari Oshea M.D.J98.4 Other disorders of lungNew Labs:Blood Urea Nitrogen BUNCreatinineFollow up:As needed
[2018-04-08] MEDS ORDERED: ceFAZolin 2 GM PREMIX (*) 2 GM/50 ML BAG IVPB ONE ×2 (07:05→08:59)
[2018-04-08] MEDS ORDERED: Heparin VIAL(*) 5000 UNITS/ML VIAL (FIVE THOUSAND) ONE (07:05)
[2018-04-08] MEDS ORDERED: Famotidine IV* 10 MG/ML 2 ML (20 mg) ONE (07:05)
[2018-04-08] MEDS ORDERED: Bupivacaine 0.25% W/EPI* 10 ML SDV ONE (07:24)
[2018-04-08] MEDS ORDERED: Midazolam* 1 MG/ML 5 ML VIAL (5 MG) ONE (07:31)
[2018-04-08] MEDS ORDERED: Rocuronium* 10 MG/ML VIAL ONE ×2 (07:31→09:22)
[2018-04-08] MEDS ORDERED: fentaNYL* 50 MCG/ML 2 ML VIAL (100 MCG VIAL) ONE ×3 (07:31→09:07)
[2018-04-08] MEDS ORDERED: Dexamethasone IV* 4 MG/ML 1 ML (4 MG) ONE (07:43)
[2018-04-08] MEDS ORDERED: Succinylcholine* 20 MG/ML 10 ML VIAL ONE (07:43)
[2018-04-08] MEDS ORDERED: Ketorolac INJ* 30 MG/ML 1 ML VIAL ONE (07:43)
[2018-04-08] MEDS ORDERED: Ondansetron INJ* 2 MG/ML VIAL ONE (07:43)
[2018-04-08] MEDS ORDERED: Lidocaine 2% PF * 5 ML VIAL ONE (07:43)
[2018-04-08] MEDS ORDERED: Propofol* 10 MG/ML 20 ML BTL IV PUSH ONE (07:43)
[2018-04-08] MEDS ORDERED: HYDROmorphone INJ* 0.5 MG/0.5 ML SYRINGE IV PRN (10:01)
[2018-04-08] MEDS ORDERED: Naloxone* 0.4 MG/ML 1 ML VIAL IV PRN (10:01)
[2018-04-08] MEDS ORDERED: oxyCODONE/Acetamin 5/325 MG* TAB PO PRN ×2 (10:01→10:31)
[2018-04-08] MEDS ORDERED: DiMENhydriNATE IV* 50 MG/ML VIAL IV PUSH PRN (10:01)
[2018-04-08] MEDS ORDERED: DiMENhydriNATE IV* 50 MG/ML VIAL ONE (10:03)
--- NOTE | 2018-04-08 10:25 | OP ---
Operative Report - Blank - Operative Report Date of Operation: 04/08/18 Note: Brief Operative Note Preop Dx: multiple lung nodules Postop Dx: same Procedure: Left VAT; biopsy AP window lymph node; Left upper lobe biopsy Anesthesia: GET Surgeon: [place] Director: JA Chavez Fluids: 2 liters RL EBL: < 50 ml Specimen: AP window LN: portion Left upper lobe Drains: one chest tube Findings: dictated
[2018-04-08] MEDS ORDERED: Acetaminophen TAB* 325 MG PO PRN (10:30)
[2018-04-08] MEDS ORDERED: HYDROmorphone INJ* 0.5 MG/0.5 ML SYRINGE IV SLOW PU PRN (10:37)
[2018-04-08] MEDS ORDERED: Magnesium Hydroxide LIQ* 30 ML UDC PO PRN (10:39)
[2018-04-08] MEDS ORDERED: Ondansetron INJ* 2 MG/ML VIAL IV PRN (10:41)
[2018-04-08] MEDS ORDERED: HYDROmorphone INJ* 0.5 MG/0.5 ML SYRINGE ONE (10:58)
--- NOTE | 2018-04-08 11:28 | RAD ---
HISTORY: VATS COMPARISONS: October 20, 2017 VIEWS: 1: frontal portable view of the chest at 10:34 AM FINDINGS: LINES AND TUBES: A left-sided chest tube is noted. CARDIOMEDIASTINAL SILHOUETTE: The cardiomediastinal silhouette is normal for portable technique and phase of respiration. PLEURA: The costophrenic angles are sharp. No pleural abnormalities are noted. There is no appreciable pneumothorax. LUNG PARENCHYMA: The lung volumes are low. There is linear atelectasis of the right lung base. ABDOMEN: The upper abdomen is clear. There is no subphrenic gas. BONES AND SOFT TISSUES: No bone or soft tissue abnormalities are noted. IMPRESSION: 1. LOW LUNG VOLUMES WITH LINEAR ATELECTASIS OF THE RIGHT LUNG BASE. 2. LEFT-SIDED CHEST TUBE, WITHOUT APPRECIABLE PNEUMOTHORAX.
[2018-04-08] MEDS ORDERED: oxyCODONE/Acetamin 5/325 MG* TAB ONE (12:10)
[2018-04-08] MEDS: oxyCODONE/Acetamin 5/325 MG* TAB PO PRN (12:11)
[2018-04-08] MEDS: HYDROmorphone INJ* 0.5 MG/0.5 ML SYRINGE IV SLOW PU PRN ×2 (14:44→17:30)
[2018-04-08] MEDS: Heparin VIAL(*) 5000 UNITS/ML VIAL (FIVE THOUSAND) SUBCUT SCH ×2 (14:45→21:21)
[2018-04-08] MEDS ORDERED: Losartan TAB* 25 MG ONE (17:42)
[2018-04-08] MEDS ORDERED: Losartan TAB* 25 MG PO ONE (18:00)
[2018-04-08] MEDS: Docusate CAP* 100 MG PO SCH (21:12)
[2018-04-09] MEDS: oxyCODONE/Acetamin 5/325 MG* TAB PO PRN ×2 (00:07→10:06)
[2018-04-09] MEDS: Heparin VIAL(*) 5000 UNITS/ML VIAL (FIVE THOUSAND) SUBCUT SCH (05:56)
--- NOTE | 2018-04-09 08:31 | PN ---
Progress Note - Progress Note Date of Service: 04/09/18 Note: POD#1 s/p VATS Afeb, VS noted Lorri po's, voiding Chest tube <100ml, no air leak Pain control good Alert and coherent, breathing easy, unlabored D/C chest tube, discharge Await path
[2018-04-09] MEDS ORDERED: Losartan TAB* 25 MG PO SCH (09:00)
[2018-04-09] MEDS ORDERED: Aspirin TAB* 325 MG PO SCH (09:00)
[2018-04-09] MEDS ORDERED: Omeprazole CAP* 20 MG PO SCH (09:00)
[2018-04-09] MEDS: Docusate CAP* 100 MG PO SCH (09:39)
--- NOTE | 2018-04-09 10:02 | PN ---
Progress Note - Progress Note Date of Service: 04/09/18 Note: Breath sounds clear on Left; no airleak. Chest tube d/c'd w/o incident; occlusive dsg placed. Instructions reviewed. Home today. Office f/u next wk.
[2018-04-09 13:28] VITALS: BP 146/79
--- NOTE | 2018-04-09 14:54 | OP ---
CC: Dr. Bakari Oshea; Caden Brown; Dr. Lawrence * DATE OF OPERATION: 04/08/18 - ROOM #333 DATE OF : 52 SURGEON: Bakari Oshea MD INSULATION FOREMAN: JA Carney ANESTHESIOLOGIST: Rocio Joel MD ANESTHESIA: General anesthetic, local infiltration, and intercostal nerve block. PRE-OP DIAGNOSIS: Bilateral pulmonary nodules. POST-OP DIAGNOSIS: Bilateral pulmonary nodules. OPERATIVE PROCEDURE: Left video thoracoscopy with lymph node biopsy and lung biopsy. DESCRIPTION OF PROCEDURE: The patient was supine on the operating room table. After adequate general anesthetic and double-lumen intubation, bronchoscopy confirmed good position of the tube. He was then placed in the lateral decubitus position with the left chest upward. He was appropriately padded, positioned, and secured to the table. Axillary area was protected as well. The left chest was prepped with antiseptic and draped in a sterile fashion. Local infiltrative anesthesia was administered and the left lateral chest was entered with a 2-cm incision and then a 12-mm Thoracoport was placed. Additional cannulae were in place. These were all 5 mm and spaced out throughout the left chest. There was a lymph node identified in the AP window and this was dissected free and removed without difficulty. This was sent fresh to Pathology. It appeared to be a benign granulomatous reaction. Inspection of the lung did not reveal any definite nodules. This was not surprising, as they were all 3 to 4 mm and not on the surface. Using the CT scan for guidance, a portion of the anterior aspect of the upper lobe was transected using a purple PRIMO stapler. This took a couple of firings and a piece of tissue was removed and sent in formalin for pathologic evaluation. A 28-Greek chest tube was put into place under vision and sutured at the skin using 2-0 Prolene and the skin for the additional incisions was closed with 5-0 Vicryl followed by Steri-Strips. A gauze dressing was placed at the site of the chest tube. He tolerated the procedure well, was awakened, extubated, and brought to Recovery in good condition. There were no complications. Drain was chest tube. Sponge and instrument counts correct. Estimated blood loss was 30 mL. Specimen was lymph node and portion of left upper lobe. [id number]/[facility] #: [id number] [facility]
--- NOTE | 2018-04-09 22:03 | DS ---
CC: Dr. Carlton Lawrence; Dr. Suhas Krueger, [facility] office * DISCHARGE SUMMARY: DATE OF ADMISSION: 04/08/18 DATE OF DISCHARGE: 04/09/18 ATTENDING SURGEON: Dr. Bakari Oshea.* (DICTATED BY JA RODRIGUEZ) HOSPITAL COURSE: Please refer to the admission history and physical and operative note for details. The patient was taken to the operating room on 10/25, at which time he underwent left thoracoscopy with lymph node biopsy and biopsy of the left upper lobe. Surgery was uneventful and the patient has had an uneventful postoperative course. He had no air leak as of the evening of surgery and was thereafter placed to water seal. Postoperative chest x-ray showed no pneumothorax. As of the morning of discharge, no air leak was present. Breath sounds were clear. He was seen and examined by Dr. Oshea. Chest tube was removed without incident and an occlusive dressing was placed. Instructions were given regarding wound care and activity. He will call to set up a followup next week in our office. Pathology is pending. Vital signs on the morning of discharge, temperature 97.8, blood pressure 149/77 , pulse 70, respirations 17, room air saturation 94% to 95%. He will resume his usual prehospital medications. A prescription for Percocet was e-sent to his pharmacy. JA RODRIGUEZ [id number]/[facility] #: [id number] MTDD
== END 2018-04-09 13:25 | disposition home or self-care (01) | DRG 168 ==
LOC: AA 06:59 → SSU 10:26
PROVIDERS: ADMIT Surgery; ATTEND Surgery
PROC: 0BBG4ZX Excision of Left Upper Lung Lobe, Percutaneous Endoscopic Approach, Diagnostic (ICD-10-PCS; 2018-04-08)
PROC: 07B74ZX Excision of Thorax Lymphatic, Percutaneous Endoscopic Approach, Diagnostic (ICD-10-PCS; principal; 2018-04-08 08:15)
DX: R91.8 Other nonspecific abnormal finding of lung field (principal); K21.9 Gastro-esophageal reflux disease without esophagitis; Z97.4 Presence of external hearing-aid; I10 Essential (primary) hypertension; Z82.49 Family history of ischemic heart disease and other diseases of the circulatory system; Z86.718 Personal history of other venous thrombosis and embolism; Z88.8 Allergy status to other drugs, medicaments and biological substances; Z82.3 Family history of stroke; Z72.89 Other problems related to lifestyle; R59.0 Localized enlarged lymph nodes
CPT/HCPCS: 71045; 88305; 88309; 88312; 88331; A9270-GY; J0330; J0690; J1100; J1170; J1240; J1644; J1885; J2250; J2405; J2704; J3010

== ENCOUNTER 2018-12-17 09:31 | Emergency (ER) | payer MEDICARE, BC ==
--- NOTE | 2018-12-17 10:59 | UC ---
Lower Extremity/Ankle HPI - HPI Summary HPI Summary: 1 MONTH OF WORSENING RIGHT ANKLE/FOOT PAIN AND SWELLING. PATIENT DOES WALK DAILY FOR EXERCISE BUT DENIES ANY DISCRETE TRAUMA. HAS A HISTORY OF RIGHT LOWER EXTREMITY DVT IN 2015 DIAGNOSED AT [facility]. WAS ON COUMADIN FOR 9 MONTHS. IN 2016 HAD SUPERFICIAL VENOUS THROMBOSIS OF THE LEFT GREATER SAPHENOUS VEIN. IS NOW CURRENTLY MAINTAINED ON FULL STRENGTH ASPIRIN DAILY. HE DENIES ANY CHEST PAIN. NO SHORTNESS OF BREATH, NAUSEA, FEVER. - History of Current Complaint Chief Complaint: UCLowerExtremity Stated Complaint: ANKLE COMPLAINT Time Seen by Provider: 12/17/18 10:18 Hx Obtained From: Patient Onset/Duration: Gradual Onset, Lasting Weeks, Still Present Severity Initially: Moderate Severity Currently: Moderate Pain Intensity: 4 Pain Scale Used: 0-10 Numeric Aggravating Factor(s): Standing, Ambulation Alleviating Factor(s): Nothing Able to Bear Weight: Yes - Allergies/Home Medications Allergies/Adverse Reactions: Allergies Allergy/AdvReac Type Severity Reaction Status Date / Time pseudoephedrine Allergy Severe Altered Verified 12/17/18 09:47 [From [facility]] Mental Status PMH/Surg Hx/FS Hx/Imm Hx - Additional Past Medical History Additional PMH: RLT DVT 2015. LLE SPFL THROMBOSIS GREATER SAPHENOUS VEIN 05/2017. Cardiovascular History: Hypertension Other History Of: Hepatitis B - Surgical History Surgical History: Yes Surgery Procedure, Year, and Place: TONSILLECTOMY- [address] [place] [address]. ESOPHAGEAL DILATION- [facility] [place]. ABDOMINAL HERNIA- 1994 [facility] [place]. BILATERAL KNEE SURGERIES X 4 (2 LEFT, 2 RIGHT)- 1998, 2004, 2008, 2010- [facility] [place]. left lung surgery 2017 - Family History Known Family History: Positive: Cardiac Disease, Hypertension, Diabetes, Other - clotting issues - Social History Alcohol Use: None Substance Use Type: None Smoking Status (MU): Never Smoked Tobacco Have You Smoked in the Last Year: No - Immunization History Most Recent Influenza Vaccination: [id number] season Most Recent Tetanus Shot: 08/09/2010 Most Recent Pneumonia Vaccination: 02/17/18 Review of Systems All Other Systems Reviewed And Are Negative: Yes Constitutional: Positive: Negative Respiratory: Positive: Negative Cardiovascular: Positive: Negative Gastrointestinal: Positive: Negative Musculoskeletal: Positive: Arthralgia, Edema Physical Exam Triage Information Reviewed: Yes Appearance: Well-Appearing, No Pain Distress, Well-Nourished Vital Signs: Initial Vital Signs Temp 99.3 F 12/17/18 09:44 Pulse 68 12/17/18 09:44 Resp 16 12/17/18 09:44 BP 119/79 12/17/18 09:44 Pulse Ox 100 12/17/18 09:44 Vital Signs Reviewed: Yes Eyes: Positive: Conjunctiva Clear ENT: Positive: Hearing grossly normal Neck: Positive: Supple Respiratory Exam: Normal Cardiovascular Exam: Normal Abdomen Description: Positive: Soft Musculoskeletal: Positive: ROM Intact, Edema @ - RIGHT HINDFOOT/ANKLE, Other: - MILDLY TENDER SOFT TISSUES RIGHT ANKLE. ACHILLES INTACT. Neurological: Positive: Alert Psychological: Positive: Age Appropriate Behavior Skin: Negative: Rashes Diagnostics - Radiology RIGHT FOOT/ANKLE XRAYS Radiology Interpretation Completed By: Radiologist Summary of Radiographic Findings: OSTEOARTHRITIS. NO ACUTE OSSEOUS INJURY No standard instances Radiology Interpretation Completed By: Radiologist Summary of Radiographic Findings: NONOCCLUSIVE THROMBUS OF THE POPLITEAL VEIN, WITH FEATURES SUGGESTIVE OF A SUBACUTE TO CHRONIC THROMBUS Lower Extremity Course/Dx - Course Course Of Treatment: PATIENT WITH KNOWN HISTORY OF RIGHT LOWER EXTREMITY DVT DIAGNOSED IN 2015 AT [facility]. WAS ON COUMADIN FOR 9 MONTHS. IN 2016 AND HAD SUPERFICIAL VENOUS THROMBOSIS IN THE LEFT GREATER SAPHENOUS VEIN. SINCE THEN HAS BEEN ON 325 MG OF ASPIRIN DAILY. COMES IN TODAY WITH 1 MONTH OF INCREASING RIGHT FOOT/ ANKLE PAIN AND SWELLING. NO KNOWN TRAUMA. WE ARE UNABLE TO REVIEW THE IMAGING FROM [facility] FROM 2015. I CALLED AND SPOKE WITH DR. KRUEGER'S NURSE MARINA. THEY' RE UNABLE TO SEE THE PATIENT TODAY OR SCHEDULE HIM FOR AN ULTRASOUND TODAY. FOR PATIENT TO BE SEEN TODAY THROUGH THE [facility] SYSTEM HE WOULD HAVE TO GO TO THE HOSPITAL IN [place]. PATIENT OPTS TO STAY HERE FOR ULTRASOUND. RESULT SHOWS A NONOCCLUSIVE THROMBUS OF THE POPLITEAL VEIN SUGGESTIVE OF A SUBACUTE TO CHRONIC THROMBUS. IMAGING REPORTS FAXED FROM [facility] INDICATE THAT HIS PREVIOUS RIGHT LOWER EXTREMITY DVT WAS IN THE FEMORAL AND POPLITEAL SYSTEM. THIS IS REASSURING THAT HIS SYMPTOMS TODAY ARE NOT DUE TO WORSENING CLOT. ADVISED PATIENT TO CONTINUE TAKING HIS ASPIRIN DAILY. DR. MONTNAO'S OFFICE IS CURRENTLY CLOSED FOR LUNCH. PATIENT WILL CALL AFTER LUNCH TO SCHEDULE A FOLLOW- UP APPOINTMENT FOR EARLY NEXT WEEK. HE WILL GO TO THE ED WITHOUT FAIL IF HE DEVELOPS ANY CONCERNING SYMPTOMS. - Differential Dx/Diagnosis Provider Diagnosis: Edema of right lower extremity Discharge - Sign-Out/Discharge Documenting (check all that apply): Patient Departure All imaging exams completed and their final reports reviewed: Yes - Discharge Plan Condition: Stable Disposition: HOME Patient Education Materials: Leg Edema (ED) Referrals: Carlton Montano MD [Medical Doctor] - 3 Days Suhas Krueger DO [Primary Care Provider] - If Needed Additional Instructions: ULTRASOUND TODAY SHOWS A NONOCCLUSIVE THROMBUS IN THE RIGHT POPLITEAL VEIN. IT LOOKS SUBACUTE/CHRONIC. X-RAYS OF YOUR FOOT AND ANKLE TODAY SHOW SOME WEAR AND TEAR ARTHRITIS BUT ARE OTHERWISE UNREMARKABLE. CONTINUE YOUR FULL-STRENGTH ASPIRIN DAILY. DR. MONTANO'S OFFICE WAS CLOSED AT THE TIME OF YOUR VISIT HOWEVER THEY SHOULD BE OPEN AFTER LUNCH. GIVE THEM A CALL TODAY TO SCHEDULE A FOLLOW- UP APPOINTMENT FOR NEXT WEEK. GO TO THE ER WITHOUT FAIL IF YOU DEVELOP CHEST PAIN, SHORTNESS OF BREATH, NAUSEA, FEVER, RAPID HEART BEAT OR ANY OTHER CONCERNING SYMPTOMS. - Billing Disposition and Condition Condition: STABLE Disposition: Home
[2018-12-17 13:22] VITALS: BP 126/86
== END 2018-12-17 13:27 | disposition home or self-care (01) ==
LOC: UCEAST 09:31
DX: I82.431 Acute embolism and thrombosis of right popliteal vein (principal); R60.0 Localized edema; M19.071 Primary osteoarthritis, right ankle and foot; I10 Essential (primary) hypertension; Z86.718 Personal history of other venous thrombosis and embolism; Z79.82 Long term (current) use of aspirin; Z88.8 Allergy status to other drugs, medicaments and biological substances
CPT/HCPCS: 99212; G0463

== ENCOUNTER 2019-01-06 15:39 | Emergency (ER) | payer MEDICARE, BC ==
--- NOTE | 2019-01-06 17:07 | ED ---
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 Associated sx: confusion. Denies: GARCIA, blurred vision, CP, unsteady gait, syncope , cough, fever. No recent trauma. He spoke with Dr. Lawrence's office who referred him to ED. Pt has been on Xarelto for the past 16 days due to DVT in his LE and feels his sx are being caused by that. Dr Mccray is his PCP. - History Of Current Complaint Chief Complaint: EDAltMentalStatus Stated Complaint: CONFUSION, WEAKNESS, SENT BY PER PT Time Seen by Provider: 01/06/19 17:06 Hx Obtained From: Patient Onset/Duration: Still Present Timing: Constant Severity Initially: Moderate Severity Currently: Moderate Character: Confusion Associated Signs And Symptoms: Positive: Weakness. Negative: Fever, Headache - Allergies/Home Medications Allergies/Adverse Reactions: Allergies Allergy/AdvReac Type Severity Reaction Status Date / Time pseudoephedrine Allergy Severe Altered Verified 01/06/19 17:14 [From [facility]] Mental Status Home Medications: Home Medications Atorvastatin* [Lipitor*] 10 mg PO DAILY 01/06/19 [History Confirmed 01/06/19] Pantoprazole TAB * [Protonix TAB*] 40 mg PO DAILY 01/06/19 [History Confirmed ] Rivaroxaban TAB(*) [Xarelto 15 mg(*)] 15 mg PO BID 01/06/19 [History Confirmed 01/06/19] Vit C/E/Zn/Coppr/Lutein/Zeaxan [Preservision Areds 2 Softgel] 1 cap PO BID 01/06 [History Confirmed 01/06/19] PMH/Surg Hx/FS Hx/Imm Hx Previously Healthy: No Endocrine/Hematology History: Denies: Hx Diabetes Cardiovascular History: Reports: Hx Hypertension - on meds, Hx Peripheral Vascular Disease - Varicose veins left leg, Other Cardiovascular Problems/ Disorders - BLOOD CLOT IN RIGHT ANKLE SINCE 09/2016 Denies: Hx Pacemaker/ICD Respiratory History: Reports: Other Respiratory Problems/Disorders - Pulmonary Nodules- multiple GI History: Reports: Hx Gastroesophageal Reflux Disease, Hx Hiatal Hernia, Hx Jaundice - 1968 Denies: Hx Gall Bladder Disease, Hx Gastrointestinal Bleed, Other GI Disorders History: Denies: Hx Dialysis, Hx Renal Disease, Other Problems/Disorders Musculoskeletal History: Reports: Hx Arthritis - Left thumb, bilateral knees, Hx Tendonitis - Right elbow, Other Musculoskeletal History - RECEIVING PT ON RIGHT SHOULDER AND LEFT SIDE OF NECK Sensory History: Reports: Hx Contacts or Glasses - GLASSES Denies: Hx Hearing Aid Opthamlomology History: Reports: Hx Contacts or Glasses - GLASSES Neurological History: Denies: Other Neuro Impairments/Disorders Psychiatric History: Reports: Hx Depression - occasional Denies: Hx Panic Disorder, Other Psychiatric Issues/Disorders - Surgical History Surgery Procedure, Year, and Place: TONSILLECTOMY- [address] [place] [address]. ESOPHAGEAL DILATION- [facility] [place]. ABDOMINAL HERNIA- 1994 [facility] [place]. BILATERAL KNEE SURGERIES X 4 (2 LEFT, 2 RIGHT)- 1998, 2004, 2008, 2010- [facility] [place]. left lung surgery 2018 Hx Anesthesia Reactions: No Infectious Disease History: No Infectious Disease History: Reports: Hx Hepatitis - 1968 THINKS IT WAS HEP "B" Denies: Hx Clostridium Difficile, Hx Human Immunodeficiency Virus (HIV), Hx of Known/Suspected MRSA, Hx Shingles, Hx Tuberculosis, Hx Known/Suspected VRE, Hx Known/Suspected VRSA, History Other Infectious Disease, Traveled Outside the in Last 30 Days - Family History Known Family History: Positive: Cardiac Disease, Hypertension, Diabetes, Other - clotting issues - Social History Occupation: Retired Lives: With Family Alcohol Use: None Hx Substance Use: No Substance Use Type: Reports: None Hx Tobacco Use: No Smoking Status (MU): Never Smoked Tobacco Have You Smoked in the Last Year: No Review of Systems Negative: Fever Negative: Blurred Vision Negative: Chest Pain Negative: Cough Neurological: Other - pos: confusion. neg: unsteady gait Positive: Weakness - general . Negative: Headache, Syncope All Other Systems Reviewed And Are Negative: Yes Physical Exam - Summary Physical Exam Summary: VITAL SIGNS: Reviewed. GENERAL: Patient is a well-developed and nourished MALE who is lying comfortable in the stretcher. Patient is not in any acute respiratory distress. HEAD AND FACE: No signs of trauma. No ecchymosis, hematomas or skull depressions. No sinus tenderness. EYES: PERRLA, EOMI x 2, No injected conjunctiva, no nystagmus. EARS: Hearing grossly intact. Ear canals and tympanic membranes are within normal limits. MOUTH: Oropharynx within normal limits. NECK: Supple, trachea is midline, no adenopathy, no JVD, no carotid bruit, no c- spine tenderness, neck with full ROM. CHEST: Symmetric, no tenderness at palpation LUNGS: Clear to auscultation bilaterally. No wheezing or crackles. CVS: Regular rate and rhythm, S1 and S2 present, no murmurs or gallops appreciated. ABDOMEN: Soft, non-tender. No signs of distention. No rebound, no guarding, and no masses palpated. Bowel sounds are normal. EXTREMITIES: FROM in all major joints, no edema, no cyanosis or clubbing. NEURO: Alert and oriented x 3. No acute neurological deficits. Speech is normal and follows commands. SKIN: Dry and warm Triage Information Reviewed: Yes Vital Signs On Initial Exam: Initial Vitals Temp Pulse Resp BP Pulse Ox 98.6 F 87 16 130/89 97 01/06/19 15:43 01/06/19 15:43 01/06/19 15:43 01/06/19 15:43 01/06/19 15:43 Vital Signs Reviewed: Yes Diagnostics - Vital Signs Vital Signs Temp Pulse Resp BP Pulse Ox 01/06/19 15:43 98.6 F 87 16 130/89 97 - Laboratory Result Diagrams: 01/06/19 17:43 01/06/19 17:43 Lab Statement: Any lab studies that have been ordered have been reviewed, and results considered in the medical decision making process. Re-Evaluation - Re-Evaluation 1 Re-Evaluation Time: 18:27 Change: Improved Comment: Discussing results with pt and consult with Dr. Crenshaw, oncology. Pt prefers to stay on his Xarelto and talk to Dr. Lawrence tomorrow. Pt is feeling better. Altered Mental Statu Course/Dx - Course Assessment/Plan: This patient is a 68-year-old male who presents to the emergency department with a chief complaint of having general weakness, occasional confusion, and not feeling himself after he is started taking Xarelto for a DVT. Patient called Dr. Lawrence office and he was directed to the emergency department for further workup and management. The patient denies any headache, blurred patient, denies any trauma to the head or any other symptom. Test results without any significant abnormality. I discussed the case with and Dr. Crenshaw from oncology and she recommends if this is the side effects from is a rectal to change into a liquid 5 mg twice a day. I discussed the findings test results and the plan with the patient and keep prefers not to change the medication onto his is and discusses the symptoms with and Dr. Lawernce. Therefore the patient was discharged home with follow-up with primary care physician and Dr. Lawrecne. - Diagnoses Provider Diagnoses: Weakness - Provider Notifications Discussed Care Of Patient With: Trudy Crenshaw - oncology Time Discussed With Above Provider: 18:03 Instructed by Provider To: Other - If these are the side effect of the Xarelto, it's OK to change him to Eliquis 5mg BID. Discharge - Sign-Out/Discharge Documenting (check all that apply): Patient Departure - D/C Patient Received Moderate/Deep Sedation with Procedure: No - Discharge Plan Condition: Stable Disposition: HOME Patient Education Materials: Weakness (ED) Referrals: Carlton Lawrence MD [Medical Doctor] - 3 Days Suhas Krueger DO [Primary Care Provider] - 3 Days Additional Instructions: FOLLOW UP WITH YOUR PRIMARY CARE PROVIDER WITHIN 3 DAYS. RETURN TO THE ED FOR ANY WORSENING OR NEW SYMPTOMS. - Billing Disposition and Condition Condition: STABLE Disposition: Home - Attestation Statements Document Initiated by Grace: Yes Documenting Scribe: Anna Vela Provider For Whom Grace is Documenting (Include Credential): Dr. Rich Diaz MD Scribe Attestation: I, Anna Vela, scribed for Dr. Rich Diaz MD on 01/07/19 at 0724. Scribe Documentation Reviewed: Yes Provider Attestation: The documentation as recorded by the Anna mukherjee accurately reflects the service I personally performed and the decisions made by me, Dr. Rich Diaz MD Status of Scribe Document: Viewed
[2019-01-06 17:50] LABS: ABS Basophils 0.1 10^3/ul (0-0.2); ABS Eosinophils 0.2 10^3/ul (0-0.6); ABS Lymphocytes 1.5 10^3/ul (1.0-4.8); ABS Monocytes 0.8 10^3/ul (0-0.8); ABS Neutrophils 3.7 10^3/ul (1.5-7.7); Eosinophil % 3.5 %; Hematocrit 42 % (42-52); Hemoglobin 14.6 g/dL (14.0-18.0); Mean Corpuscular HGB Conc 35 g/dL (31-36); Mean Corpuscular Hemoglobin 29 pg (27-31); Mean Corpuscular Volume 84 fL (80-94); Mean Platelet Volume 8.7 fL (7.4-10.4); Nucleated Red Blood Cells % 0.1; Platelet Count 170 10^3/uL (150-450); Red Blood Count 5.05 10^6 /uL (4.18-5.48); Red Cell Distribution Width 13 % (10.5-15); White Blood Count 6.3 10^3/uL (3.5-10.8)
[2019-01-06 18:11] LABS: Albumin 4.2 g/dL (3.2-5.2); Albumin/Globulin Ratio 1.6 (1-3); BUN/Creatinine Ratio 18.5 (8-20); Calcium 9.4 mg/dL (8.6-10.3); EGFR African American 82.5 (>60); EGFR Non-African American 68.2 (>60); Globulin 2.7 g/dL (2-4); Potassium 4.2 mmol/L (3.5-5.0); Total Bilirubin 0.6 mg/dL (0.2-1.0); Total Protein 6.9 g/dL (6.4-8.9)
[2019-01-06 18:59] VITALS: BP 150/92
== END 2019-01-06 18:58 | disposition home or self-care (01) ==
LOC: ED 15:39
DX: R53.1 Weakness (principal); I10 Essential (primary) hypertension; I73.9 Peripheral vascular disease, unspecified; R91.8 Other nonspecific abnormal finding of lung field; K21.9 Gastro-esophageal reflux disease without esophagitis; K44.9 Diaphragmatic hernia without obstruction or gangrene; Z88.8 Allergy status to other drugs, medicaments and biological substances; Z79.899 Other long term (current) drug therapy; Z86.718 Personal history of other venous thrombosis and embolism
CPT/HCPCS: 36415; 80053; 82550; 83605; 85025; 99282

== ENCOUNTER → 2019-07-06 11:32 | Day surgery (SDC) | payer MEDICARE, BC ==
[~2019-07-06 11:32] MED LIST changes: +Acetaminophen IV 1GM/100ML * 1,000 MG/100 ML VIAL IVPB ONE; +Acetaminophen IV 1GM/100ML * 100 ML ONE; -Buffered Lidocaine 0.9% SYRIN* 5 ML/SYR SYRINGE INTRADERM ONE; +Buffered Lidocaine 1% SYRIN* 1 ML/SYRINGE INTRADERM ONE; +Bupivacaine 0.25% SDV PF* 10 ML VIAL INJ ONE; -Famotidine IV* 10 MG/ML 2 ML (20 mg) IV ONE; +Ketorolac INJ* 30 MG/ML 1 ML VIAL IV PRN; +Ketorolac INJ* 30 MG/ML 1 ML VIAL ONE; +Lactated Ringers 1000 ML Bag* 1,000 ML IV SCH; +Lidocaine 2% PF * 5 ML VIAL ONE; +Midazolam* 1 MG/ML 2 ML VIAL (2 MG) ONE; +Naloxone* 0.4 MG/ML 1 ML VIAL IV PRN; +Ondansetron INJ* 2 MG/ML VIAL IV PRN; +Rocuronium* 10 MG/ML VIAL ONE; +Sodium Citrate/Citric Acid* 15 ML UDC ONE; +Sodium Citrate/Citric Acid* 15 ML UDC PO ONE; +Sugammadex * 500 MG/5 ML VIAL IV PUSH ONE; +ceFAZolin 2 GM in NS PREMIX(*) 2 GM/100 ML BAG IVPB ONE; +fentaNYL* 50 MCG/ML 2 ML VIAL (100 MCG VIAL) ONE
--- NOTE | 2019-07-06 15:52 | BRIEFOPN ---
Brief Operative/Procedure Note - Operation Details Pre-Op Diagnosis: recurrent ventral hernia Post-Op Diagnosis: same Procedures: laparoscopic repair recurrent ventral hernia with mesh Surgeon(s)/Proceduralists: Kevin. Assist: JA Chavez Anesthesia: GET Estimated Blood Loss: < 20 ml Findings: as above Specimen(s)/Culture(s) Description: none Complications: none
[2019-07-06] MEDS: fentaNYL* 50 MCG/ML 2 ML VIAL (100 MCG VIAL) IV PRN ×4 (16:14→17:09)
[2019-07-06 19:26] VITALS: BP 130/71
--- NOTE | 2019-07-07 06:28 | OP ---
CC: Dr. Suhas Krueger; [facility] * DATE OF OPERATION: 07/06/19 - [facility] DATE OF : 52 SURGEON: Ervin Brown MD. SHEAR ASSEMBLER: JA Carney. ANESTHESIOLOGIST: Dr. Panda. ANESTHESIA: General. PRE-OP DIAGNOSIS: Ventral hernia. POST-OP DIAGNOSIS: Recurrent spigelian hernia. OPERATIVE PROCEDURE: Laparoscopic repair of recurrent ventral hernia with mesh. BLOOD LOSS: Minimal. IV FLUIDS: Minimal fluids given. SPECIMEN: None. COUNTS: Lap pad count and instrument count correct at the end of the procedure. DESCRIPTION OF PROCEDURE: The patient was identified in the preoperative area. Hernia area was marked. The patient was marked. Consent was signed. He was then taken to the operating room and placed on the operating table in the supine position. Sequential devices were placed on bilateral lower extremities and general anesthesia was induced. Preoperative antibiotics were given. The patient's abdomen was prepped and draped in a standard surgical fashion. A time - out was performed. An incision was made at the right upper quadrant, midclavicular line 2 fingerbreadths below the costal margin. This was deepened down to the anterior fascia, which was elevated and a Veress needle was inserted into the abdominal cavity. This was then allowed to insufflate to a pressure of 15 mmHg. The patient tolerated the insufflation well. A 12 mm optical trocar was then placed and review of the abdomen showed omental attachments to the anterior abdominal wall at the hernia site. Two 5 mm trocars were then placed in the subxiphoid area and one in the right lower quadrant. Blunt and sharp dissection was carried out to free up omentum as it extended through this as this were not simple adhesions, but hernia. The hernia defect was approximately 2 cm after reduction of the omentum. We then opened up a 6.4 cm ventral mesh, a couple of tails off of it, and sutured the anterior aspect with a 0 Prolene suture. We then placed it intraabdominally through the 12 mm trocar and then with a suture passer brought it through the midportion of the hernia defect of the left lower quadrant. Pulling up on the suture, we then affixed the mesh at the anterior abdominal wall with SecureStrap and then tied the suture as well. This covered the full defect with good overlap and then we reviewed the abdomen. There was no bleeding. The abdomen was allowed to collapse, and trocars were removed under direct vision, and all surgical incisions were then reapproximated with 4-0 Monocryl subcuticular sutures followed by Steri-Strips and sterile dressing. The patient tolerated the procedure well and was transferred to the PACU in stable condition. [id number]/[facility] #: [id number] MTDEhsan
== END | disposition home or self-care (01) ==
LOC: OR 11:32
PROVIDERS: ATTEND Surgery
DX: K43.2 Incisional hernia without obstruction or gangrene (principal); I10 Essential (primary) hypertension; K21.9 Gastro-esophageal reflux disease without esophagitis; Z86.718 Personal history of other venous thrombosis and embolism; Z79.01 Long term (current) use of anticoagulants
CPT/HCPCS: A9270-GY; C1776; C1781; J0690; J1885; J2250; J3010; J3490